=== PATIENT | female | born 1935 ===

== ENCOUNTER 2019-08-10 15:59 | Emergency (ER) | payer MEDICARE ==
--- OUTSIDE RECORDS SUMMARY | 2019-08-10 16:08 | XMS REPORT | Continuity of Care Document ---
:1935 External Reference #:[id number] Author Name Edwin Waller MD (transmitted by agent of provider Catarina Vega) Address [address] [place] [address] Problems Active Problems Provider Date H/O: fracture Onset: 07/30/2018 Essential hypertension Onset: 08/04/2011 Hyperlipidemia Onset: 08/04/2011 Bladder muscle dysfunction - overactive Onset: 08/04/2011 Hypokalemia Onset: 08/04/2011 Gastroesophageal reflux disease Onset: 08/04/2011 Arthropathy Onset: 08/04/2011 Social History Type Date Description Comments Sex Unknown ETOH Use Never used alcohol Tobacco Use Start: Unknown Patient has never smoked Recreational Drug Use Never Used Drugs Smoking Status Reviewed: 08/02/19 Patient has never smoked Allergies, Adverse Reactions, Alerts Active Allergies Reaction Severity Comments Date Penicillin Free Text 09/07/2018 Medications Active Medications SIG Qnty Indications Ordering Provider Date Irbesartan-Hydrochloro 1 by mouth every 30tabs I10 Edwin 08/02/2019 thiazide day MD Christin 300-12.5mg Tablets Cartia XT 1 by mouth every 90caps I10 Edwin 06/04/2018 180mg Caps ER day MD Christin 24HR Atorvastatin Calcium take 1 tablet by 90tabs Edwin 07/05/2017 20mg mouth every MD Christin Tablets evening Claritin 1 by mouth every 90tabs L50.0 Edwin 06/12/2013 10mg Tablets day MD Christin Oxybutynin Chloride Take 1 Tablet By 90tabs Edwin 5mg Mouth Every Day MD Christin Tablets Potassium Chloride take 1 tablet by 90tabs Edwin Liudmila ER mouth once daily MD Christin 10Meq Tablets ER Prednisolone Acetate Shake LQ And Int Unknown 1% 1 GTT In OD bid Suspension Co-Q 10 [place]-3 Fish 1 daily - OTC Unknown Oil [place]-3 Capsules History Medications Irbesartan-Hydrochlorothiazide 1 by 90tabs I10 Edwin 06/07/2019 - 150-12.5mg Tablets mouth MD Christin 08/02/2019 every day Immunizations CPT Code Status Date Vaccine Lot # 53435 Given 05/21/2019 Fluzone High Dose 65295 Given 05/24/2018 Fluzone High Dose 57556 Given 06/14/2017 Fluzone High Dose 37958 Given 05/25/2016 Fluzone High Dose 05517 Given 06/03/2015 Pneumococcal Conjugate Vaccine 13 Valent For Intramuscular Use 47549 Given 06/23/2014 Pneumococcal Conjugate Vaccine 13 Valent For Intramuscular Use 54032 Given 05/26/2014 Influenza Virus 3Yrs & Over 83237 Given 07/16/2013 Influenza Virus 3Yrs & Over 06651 Given 05/18/2012 Influenza Virus 3Yrs & Over 89682 Given 07/15/2011 Influenza Virus 3Yrs & Over 51036 Given 06/27/2007 Influenza Virus 3Yrs & Over 29103 Given 07/26/2004 Influenza Virus 3Yrs & Over 61313 Given 06/12/2002 Influenza Virus 3Yrs & Over 29448 Given 06/05/2000 Influenza Virus 3Yrs & Over 99480 Given 07/08/1999 Influenza Virus 3Yrs & Over 35160 Given 04/13/1999 Tetanus And Diptheria (Td) For Adult Use Preservative Free 23760 Given 06/26/1995 Pneumonia Vaccine 70796 Given 01/12/1994 DT Vaccine Younger Than 7 Yrs Vital Signs Date Vital Result Comment 08/02/2019 8:26am Weight 123.00 lb BP Systolic 146 mmHg med at 0645 BP Diastolic 94 mmHg med at 0645 06/07/2019 8:09am Weight 123.06 lb Heart Rate 92 /min BP Systolic 142 mmHg BP Diastolic 90 mmHg Body Temperature 97.2 F O2 % BldC Oximetry 96 % Results Description No Information Available Procedures Date Code Description Status 08/17/2011 [id number] Mammogram Completed Medical Devices Description No Information Available Encounters Type Date Location Provider Dx Diagnosis Office Visit 06/07/2019 [facility] Edwin I10 Essential (primary) 8:00a MD Christin hypertension Office Visit 05/24/2019 [facility] Edwin I10 Essential (primary) 11:30a MD Christin hypertension Office Visit 04/10/2019 [facility] MEET Bernal I10 Essential ( primary) 9:15a hypertension E78.5 Hyperlipidemia, unspecified J30.89 Other allergic rhinitis E87.6 Hypokalemia Assessments Date Code Description Provider 08/02/2019 I10 Essential (primary) hypertension Edwin Waller MD 06/07/2019 I10 Essential (primary) hypertension Edwin Waller MD 05/24/2019 I10 Essential (primary) hypertension Edwin Waller MD 04/10/2019 I10 Essential (primary) hypertension MEET Bernal 04/10/2019 E78.5 Hyperlipidemia, unspecified MEET Bernal 04/10/2019 J30.89 Other allergic rhinitis MEET Bernal 04/10/2019 E87.6 Hypokalemia MEET Bernal Plan of Treatment Future Appointment(s):08/26/2019 11:00 am - Edwin Waller MD at [facility]08/02/2019 - Edwin Waller MDI10 Essential (primary) hypertensionNew Medication:Irbesartan-Hydrochlorothiazide 300-12.5 mg - 1 by mouth every dayFollow up:next physical Functional Status Description No Information Available Mental Status Description No Information Available Referrals Description No Information Available
[2019-08-10 16:18] VITALS: BP 158/91
--- NOTE | 2019-08-10 16:50 | UC ---
Respiratory Complaint HPI - HPI Summary HPI Summary: Pt presents with c/o malaise, worsening nasal and chest congestion, cough, wheezing and sob X 5 days. - History of Current Complaint Chief Complaint: UCRespiratory Stated Complaint: COUGH,CONGESTION,CHEST TIGHTNESS Time Seen by Provider: 08/10/19 16:26 Hx Obtained From: Patient Hx Last Menstrual Period: N/A ?: No Onset/Duration: Gradual Onset, Lasting Days, Still Present, Worse Since - onset Timing: Constant Severity Initially: Mild Severity Currently: Moderate Pain Intensity: 0 Character: Cough: Productive Aggravating Factors: Exertion, Deep Breaths, Recumbent Position Alleviating Factors: Nothing Associated Signs And Symptoms: Positive: Chills, Wheezing, URI, Nasal Congestion - Risk Factors Pulmonary Embolism Risk Factors: Negative Cardiac Risk Factors: Hypertension Pseudomonas Risk Factors: Negative Tuberculosis Risk Factors: Negative - Allergies/Home Medications Allergies/Adverse Reactions: Allergies Allergy/AdvReac Type Severity Reaction Status Date / Time Penicillins Allergy Hives Verified 08/10/19 16:10 Home Medications: Home Medications Diltiazem CD CAP* [Cardizem CD CAP*] 180 mg PO BID 08/10/19 [History Confirmed 08/10/19] Irbesartan/Hydrochlorothiazide [Irbesartan-Hctz 150-12.5 mg Tb] 1 tab DAILY 03/22 [History Confirmed 08/10/19] PMH/Surg Hx/FS Hx/Imm Hx Previously Healthy: Yes Cardiovascular History: Cardiac Disease, Hypertension - Surgical History Surgical History: Yes Surgery Procedure, Year, and Place: 1974 hysterectomy. 2007 left knee arthroscopy. LEFT hip - Family History Known Family History: Positive: Cardiac Disease - Social History Occupation: Retired Lives: With Family Alcohol Use: None Substance Use Type: None Smoking Status (MU): Never Smoked Tobacco Have You Smoked in the Last Year: No - Immunization History Most Recent Influenza Vaccination: 2015 Most Recent Tetanus Shot: up to date Most Recent Pneumonia Vaccination: 2015 Vaccination Up to Date: Yes Review of Systems All Other Systems Reviewed And Are Negative: Yes Constitutional: Positive: Chills, Fatigue Skin: Positive: Negative Eyes: Positive: Negative ENT: Positive: Sinus Congestion Respiratory: Positive: Shortness Of Breath, Cough Cardiovascular: Positive: Negative Gastrointestinal: Positive: Negative Genitourinary: Positive: Negative Motor: Positive: Negative Neurovascular: Positive: Negative Musculoskeletal: Positive: Negative Neurological: Positive: Negative Psychological: Positive: Negative Is Patient Immunocompromised?: No Physical Exam Triage Information Reviewed: Yes Appearance: Ill-Appearing Vital Signs: Initial Vital Signs Temp 97.5 F 08/10/19 16:13 Pulse 87 08/10/19 16:13 Resp 14 08/10/19 16:13 BP 158/91 08/10/19 16:13 Pulse Ox 98 08/10/19 16:13 Vital Signs Reviewed: Yes Eye Exam: Normal ENT: Positive: Nasal congestion Dental Exam: Normal Neck exam: Normal Respiratory: Positive: Decreased breath sounds, Wheezing Cardiovascular Exam: Normal Musculoskeletal Exam: Normal Neurological Exam: Normal Psychological Exam: Normal Skin Exam: Normal Respiratory Course/Dx - Differential Dx/Diagnosis Differential Diagnosis/HQI/PQRI: Bronchitis, Exacerbation Of COPD Provider Diagnosis: Pneumonia Discharge ED - Sign-Out/Discharge Documenting (check all that apply): Patient Departure All imaging exams completed and their final reports reviewed: No Studies - Discharge Plan Condition: Stable Disposition: HOME Prescriptions: Benzonatate CAP* [Tessalon 100 MG CAP*] 100 mg PO TID PRN #30 cap PRN Reason: Cough DOXYcycline CAP(*) [DOXYcycline 100MG CAP(*)] 100 mg PO Q12H #20 cap predniSONE TAB* [Deltasone 20 MG TAB*] 20 mg PO DAILY #5 tab Patient Education Materials: Pneumonia (ED) Referrals: Edwin Waller MD [Primary Care Provider] - As Soon As Possible - Billing Disposition and Condition Condition: STABLE Disposition: Home
[2019-08-10] MEDS ORDERED: DOXYcycline CAP(*) 100 MG PO ONE (17:33)
[2019-08-10] MEDS ORDERED: Benzonatate CAP* 100 MG PO ONE (17:33)
== END 2019-08-10 17:02 | disposition home or self-care (01) ==
LOC: UCCORT 15:59
DX: J18.9 Pneumonia, unspecified organism (principal); R53.81 Other malaise; I10 Essential (primary) hypertension; R53.83 Other fatigue; Z88.0 Allergy status to penicillin; Z79.899 Other long term (current) drug therapy
CPT/HCPCS: 99213; A9270-GY; G0463